=== PATIENT | female | born 1960 | race Caucasian/White ===

== ENCOUNTER → 2024-02-07 10:57 | Outpatient (REF) | payer BC, SELFPAY ==
[2024-02-14 04:31] LABS: HPV, High Risk Not Detected; HPV, High Risk Source Cervical
== END ==
LOC: CPAP 10:57
PROVIDERS: ATTENDING PHYSICIAN Obstetrics & Gynecology
DX: Z01.419 Encounter for gynecological examination (general) (routine) without abnormal findings (principal); Z12.4 Encounter for screening for malignant neoplasm of cervix; Z11.51 Encounter for screening for human papillomavirus (HPV)
CPT/HCPCS: 87624; G0123

== ENCOUNTER → 2024-03-11 07:23 | Outpatient (REF) | payer BC, SELFPAY ==
[2024-03-11 08:35] LABS: % Basophils 0.8 % (0-2); % Eosinophils 1.7 % (0-6); % Immature Granulocytes 0.2 % (0-0.5); % Lymphocytes 30.5 % (20.5-51.1); % Monocytes 5.7 % (1.7-9.3); % Neutrophils 61.1 % (42.2-75.2); Absolute Basophils 0.1 10^3/uL (0-0.2); Absolute Eosinophils 0.1 10^3/uL (0-0.7); Absolute Lymphocytes 1.8 10^3/uL (1.2-3.4); Absolute Monocytes 0.3 10^3/uL (0.1-0.6); Absolute Neutrophils 3.6 10^3/uL (1.4-6.5); Hematocrit 39.8 % (37.0-47.0); Mean Corp Hgb Conc. 32.7 g/dL (33.0-37.0); Mean Corpuscular Hgb 29.4 pg (27.0-31.0); Nucleated Red Blood Cells % 0 %; Platelet Count 247 10^3/uL (130-400); Red Blood Cell Count 4.42 10^6/uL (4.20-5.40); Red Cell Dist. Width 13.6 % (11.5-14.5)
[2024-03-11 08:59] LABS: ALT (SGPT) 24 U/L (0-35); AST (SGOT) 27 U/L (14-36); Albumin 4.2 g/dl (3.5-5.0); Alkaline Phosphatase 82 U/L (38-126); Blood Urea Nitrogen 17 mg/dl (7-17); Calcium 9.5 mg/dl (8.4-10.2); Carbon Dioxide 27 mmol/L (22-30); Chloride 107 mmol/L (98-107); Glucose 101 mg/dl (70-99); HDL Cholesterol 35 mg/dl; LDL Cholesterol, Calculated 122 mg/dl; Potassium 4.2 mmol/L (3.5-5.1); Sodium 142 mmol/L (135-145); Total Bilirubin 0.9 mg/dl (0.2-1.3); Total Cholesterol 184 mg/dl (50-199); Triglyceride 137 mg/dl (10-149); Very Low Density Lipoprotein 27 mg/dl (0-30); eGFR > 60.00
[2024-03-11 09:52] LABS: Glycohemoglobin (HgbA1c) 5.5 % (4.0-5.6)
[2024-03-11 10:40] LABS: TSH Reflex To Free T4 2.83 uIU/ml (0.47-4.68)
[2024-03-11 10:49] LABS: Vitamin D, 25-OH*** 39.8 ng/mL (30-80)
[2024-03-11 10:59] LABS: Vitamin B12 327 pg/ml (239-931)
== END ==
LOC: REG 07:23
PROVIDERS: ATTENDING PHYSICIAN Internal Medicine; REFERRING PHYSICIAN Internal Medicine Cardiovascular Disease
DX: E55.9 Vitamin D deficiency, unspecified (principal); Z00.00 Encounter for general adult medical examination without abnormal findings; E66.9 Obesity, unspecified; Z68.39 Body mass index [BMI] 39.0-39.9, adult; I70.0 Atherosclerosis of aorta; K21.9 Gastro-esophageal reflux disease without esophagitis; G47.33 Obstructive sleep apnea (adult) (pediatric); E53.8 Deficiency of other specified B group vitamins; M54.2 Cervicalgia; E03.8 Other specified hypothyroidism; Z79.899 Other long term (current) drug therapy
CPT/HCPCS: 36415; 80053; 80061; 82306; 82607; 83036; 84443; 85025

== ENCOUNTER → 2024-04-02 14:05 | Outpatient (REF) | payer BC, SELFPAY | LOC: WDC 14:05 | PROVIDERS: ATTENDING PHYSICIAN Obstetrics & Gynecology; FAMILY PHYSICIAN Internal Medicine | DX: Z12.31 Encounter for screening mammogram for malignant neoplasm of breast (principal) | CPT/HCPCS: 77063; 77067 ==

== ENCOUNTER → 2024-11-06 07:17 | Outpatient (REF) | payer BC, SELFPAY | LOC: RAD 07:17 | PROVIDERS: ATTENDING PHYSICIAN Registered Nurse | DX: R05.3 Chronic cough (principal) | CPT/HCPCS: 71046 ==

== ENCOUNTER → 2025-01-28 07:13 | Outpatient (REF) | payer BC, SELFPAY ==
[2025-01-28 09:34] LABS: % Basophils 0.7 % (0-2); % Eosinophils 2.2 % (0-6); % Immature Granulocytes 0.2 % (0-0.5); % Lymphocytes 28.9 % (20.5-51.1); % Monocytes 5.5 % (1.7-9.3); % Neutrophils 62.5 % (42.2-75.2); Absolute Eosinophils 0.1 10^3/uL (0-0.7); Absolute Lymphocytes 1.7 10^3/uL (1.2-3.4); Absolute Monocytes 0.3 10^3/uL (0.1-0.6); Absolute Neutrophils 3.8 10^3/uL (1.4-6.5); Mean Corp Hgb Conc. 33.3 g/dL (33.0-37.0); Mean Corpuscular Hgb 29.7 pg (27.0-31.0); Mean Platelet Volume 11.1 fL (7.4-10.4); Nucleated Red Blood Cells % 0 %; Platelet Count 237 10^3/uL (130-400); Red Blood Cell Count 4.38 10^6/uL (4.20-5.40); Red Cell Dist. Width 13.7 % (11.5-14.5)
[2025-01-28 10:01] LABS: ALT (SGPT) 24 U/L (0-35); AST (SGOT) 23 U/L (14-36); Albumin 3.9 g/dl (3.5-5.0); Alkaline Phosphatase 80 U/L (38-126); Blood Urea Nitrogen 20 mg/dl (7-17); Calcium 9.3 mg/dl (8.4-10.2); Carbon Dioxide 27 mmol/L (22-30); Chloride 108 mmol/L (98-107); Glucose 93 mg/dl (70-99); HDL Cholesterol 34 mg/dl; LDL Cholesterol, Calculated 126 mg/dl; Potassium 4.3 mmol/L (3.5-5.1); Sodium 143 mmol/L (135-145); Total Bilirubin 0.9 mg/dl (0.2-1.3); Total Cholesterol 184 mg/dl (50-199); Total Protein 6.6 g/dl (6.3-8.2); Triglyceride 120 mg/dl (10-149); Very Low Density Lipoprotein 24 mg/dl (0-30); eGFR > 60.00
[2025-01-28 10:05] LABS: Glycohemoglobin (HgbA1c) 5.8 % (4.0-5.6)
[2025-01-28 10:18] LABS: Vitamin D, 25-OH*** 32.8 ng/mL (30-80)
[2025-01-28 10:32] LABS: TSH Reflex To Free T4 3.19 uIU/ml (0.47-4.68)
[2025-01-28 10:51] LABS: Vitamin B12 330 pg/ml (239-931)
== END ==
LOC: REG 07:13
PROVIDERS: ATTENDING PHYSICIAN Internal Medicine; OTHER PHYSICIAN Internal Medicine Cardiovascular Disease
DX: E55.9 Vitamin D deficiency, unspecified (principal); E53.8 Deficiency of other specified B group vitamins; Z00.00 Encounter for general adult medical examination without abnormal findings; R73.09 Other abnormal glucose
CPT/HCPCS: 36415; 80053; 80061; 82306; 82607; 83036; 84443; 85025

== ENCOUNTER → 2025-02-20 07:50 | Outpatient (REF) | payer BC, SELFPAY | LOC: RSP 07:50 | PROVIDERS: ATTENDING PHYSICIAN Internal Medicine | DX: R05.3 Chronic cough (principal) | CPT/HCPCS: 94727; 94729; 94010 ==

== ENCOUNTER → 2025-05-13 16:50 | Outpatient (REF) | payer BC, SELFPAY ==
[2025-05-17 09:45] LABS: HPV, High Risk Detected; HPV, High Risk Source Cervical
[2025-05-19 08:01] LABS: HPV Genotype 18/45 by TMA Not Detected
== END ==
LOC: CPAP 16:50
PROVIDERS: ATTENDING PHYSICIAN Obstetrics & Gynecology
DX: Z11.51 Encounter for screening for human papillomavirus (HPV) (principal); Z01.419 Encounter for gynecological examination (general) (routine) without abnormal findings
CPT/HCPCS: 87624; 87625

== ENCOUNTER → 2025-05-21 15:39 | Outpatient (REF) | payer BC, SELFPAY | LOC: WDC 15:39 | PROVIDERS: ATTENDING PHYSICIAN Internal Medicine | DX: Z12.31 Encounter for screening mammogram for malignant neoplasm of breast (principal) | CPT/HCPCS: 77063; 77067 ==

== ENCOUNTER → 2025-05-27 08:34 | Outpatient (REF) | payer BC, SELFPAY | LOC: WDC 08:34 | PROVIDERS: ATTENDING PHYSICIAN Internal Medicine | DX: R92.8 Other abnormal and inconclusive findings on diagnostic imaging of breast (principal) | CPT/HCPCS: 76642 ==

== ENCOUNTER → 2025-06-23 11:04 | Outpatient (REF) | payer BC, SELFPAY | LOC: REG 11:04 | PROVIDERS: ATTENDING PHYSICIAN Registered Nurse; FAMILY PHYSICIAN Internal Medicine | DX: M79.671 Pain in right foot (principal) | CPT/HCPCS: 73630 ==

== ENCOUNTER → 2025-07-10 06:47 | Outpatient (REF) | payer BC, SELFPAY | LOC: MRI 06:47 | PROVIDERS: ATTENDING PHYSICIAN Student in an Organized Health Care Education/Training Program; FAMILY PHYSICIAN Internal Medicine | DX: M79.671 Pain in right foot (principal) | CPT/HCPCS: 73718 ==

== ENCOUNTER → 2025-09-05 15:08 | Outpatient (REF) | payer BC, SELFPAY | LOC: RAD 15:08 | PROVIDERS: ATTENDING PHYSICIAN Obstetrics & Gynecology; FAMILY PHYSICIAN Internal Medicine | DX: Z78.0 Asymptomatic menopausal state (principal) | CPT/HCPCS: 77080 ==